=== PATIENT | female | born 1970 | race Caucasian/White ===

== ENCOUNTER 2025-10-28 05:44 | Emergency (ER) | payer MEDICARE ==
[2025-10-28] MEDS ORDERED: Benzonatate 100 MG CAP ONE (07:09)
== END 2025-10-28 07:25 | disposition home or self-care (01) ==
LOC: MADERS 05:44
DX: J18.9 Pneumonia, unspecified organism (principal); J44.1 Chronic obstructive pulmonary disease with (acute) exacerbation; R73.03 Prediabetes; E66.9 Obesity, unspecified; I25.10 Atherosclerotic heart disease of native coronary artery without angina pectoris; E78.5 Hyperlipidemia, unspecified; I10 Essential (primary) hypertension; E03.9 Hypothyroidism, unspecified; M79.7 Fibromyalgia; K21.9 Gastro-esophageal reflux disease without esophagitis; F17.210 Nicotine dependence, cigarettes, uncomplicated; Z79.82 Long term (current) use of aspirin; Z79.51 Long term (current) use of inhaled steroids; Z79.890 Hormone replacement therapy; Z79.84 Long term (current) use of oral hypoglycemic drugs; Z79.899 Other long term (current) drug therapy
CPT/HCPCS: 71045; 87428